=== PATIENT | female | born 1980 | race Caucasian/White ===

== ENCOUNTER 2017-06-30 14:19 | Emergency (ER) | payer OTHER ==
[2017-06-30 15:32] LABS: ABS Basophils 0 10^3/ul (0-0.2); ABS Eosinophils 0.1 10^3/ul (0-0.6); ABS Lymphocytes 2.2 10^3/ul (1.0-4.8); ABS Monocytes 0.5 10^3/ul (0-0.8); ABS Nucleated RBC 0 10^3/ul; Eosinophil % 0.8 % (0-6); Hematocrit 35 % (35-47); Hemoglobin 11.9 g/dl (12.0-16.0); Lymphocyte % 28.8 % (25-47); Mean Corpuscular HGB Conc 34 g/dl (31-36); Mean Corpuscular Hemoglobin 29 pg (27-31); Mean Corpuscular Volume 87 fL (80-97); Mean Platelet Volume 6 um3 (7.4-10.4); Nucleated Red Blood Cells % 0.1; Platelet Count 228 10^3/ul (150-450); Red Blood Count 4.05 10^6/ul (4.0-5.4); Red Cell Distribution Width 14 % (10.5-15); White Blood Count 7.8 10^3/ul (3.5-10.8)
[2017-06-30] MEDS: NS 0.9% 1000 ML* 2,000 ML IV ONE ×2 (15:33→15:34)
[2017-06-30 15:47] LABS: EGFR Non-African American 63.5 (>60)
--- NOTE | 2017-06-30 16:22 | CONSULT ---
Consult Consult: Pt was found to have an MAB several weeks ago and received misoprostol for management. She proceeded to have heavy bleeding and clots followed by progressive decrease in bleeding over the next week. She was seen 5 days ago in the office and had a sono that was consistent with no further retained POC. She had sent the clots she passed to pathology and no POC was noted. At that time she was having very minimal spotting. Earlier this morning she started bleeding again and passed a large clot, about plum sized. Then began bleeding more heavily around noon and was changing a pad multiple times/hour. No cramping. No fever/chills. No dizzyness or light-headedness. 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 Foul odor of retained POC. Sono: some blood clots or possible retained POC in the cervix and possibly the very lower uterine segment. Repeat sono with very minimal clot in cervix. Assessment: Retained POC s/p medical management of MAB, possible endometritis. Plan: Methergine series. Doxycycline 100po bid x10 days. F/u bhcg in office weekly until normal. Reviewed bleeding precautions and when to call.
--- NOTE | 2017-06-30 16:46 | RAD ---
INDICATION: Vaginal bleeding 2 weeks status post D and C COMPARISON: None. TECHNIQUE: Real-time transabdominal and transvaginal ultrasound examination of the female pelvis including grayscale and Doppler color flow imaging. FINDINGS: Uterus: The uterus measures 9.9 x 4.5 x 6.1 cm. There is thickening of the endometrial stripe measuring 15 mm in thickness. There is heterogeneously echogenic material in the endometrium exhibiting marked vascularity. Ovaries: The right and left ovary measure 3.7 x 2.5 x 2.4 cm and 3.2 x 2.7 x 2.7 cm, respectively. Normal arterial and venous waveforms are identified. Appearance is within normal limits for the patient's age. There is no free fluid in the cul-de-sac. IMPRESSION: Sonographic findings are most concerning for retained products of conception 2 weeks status post D&C.
[2017-06-30] MEDS ORDERED: Methylergonovine INJ* 0.2 MG/ML 1ML AMP IM ONE (17:03)
[2017-06-30] MEDS ORDERED: DOXYcycline CAP(*) 100 MG PO ONE ×2 (17:31→18:21)
[2017-06-30] MEDS ORDERED: Silver Nitrate/Potassium Nitr* 1 EA STICK ONE ×2 (17:59)
[2017-06-30] MEDS ORDERED: Methylergonovine TAB* 0.2 MG PO ONE (18:21)
[2017-06-30] MEDS ORDERED: HYDROcodone/ACETAMIN 5-325 MG* 1 TAB PO ONE (18:23)
[2017-06-30 18:59] VITALS: BP 110/61
--- NOTE | 2017-06-30 19:03 | ED ---
Gordy Cortés Tecjoon, scribed for Jovani Yin MD on 06/30/17 at 1511 . GI/ HPI - HPI Summary HPI Summary: This patient is a 37 year old female presenting to [facility] accompanied by with a chief complaint of vaginal bleeding since 2 weeks ago, worsening heavily today this morning. Patient states she had a miscarriage 2 weeks ago and had vaginal bleeding for a few days, which then stopped. This morning, the patient woke up to heavy vaginal bleeding and several large clots. Symptoms are still present. Patient denies any pain. - History of Current Complaint Chief Complaint: EDVaginalBleeding Time Seen by Provider: 06/30/17 14:51 Stated Complaint: BLEEDING/BLOOD CLOTS Hx Obtained From: Patient Onset/Duration: Started Hours Ago, Still Present Timing: Constant Severity: Moderate Current Severity: Moderate Pain Intensity: 0 - /10 Additional Signs & Symptoms: Positive: Miscarriage - Allergy/Home Medications Allergies/Adverse Reactions: Allergies Allergy/AdvReac Type Severity Reaction Status Date / Time No Known Allergies Allergy Verified 06/30/17 14:29 PMH/Surg Hx/FS Hx/Imm Hx Previously Healthy: Yes Cardiovascular History: Denies: Hx Hypertension Opthamlomology History: Denies: Hx Legally Blind EENT History: Denies: Hx Deafness - Surgical History Surgery Procedure, Year, and Place: Vocal Cords; LASIK Infectious Disease History: No Infectious Disease History: Denies: Traveled Outside the [place] in Last 30 Days - Family History Known Family History: Positive: Hypertension, Other - IBS - Social History Lives: With Family Alcohol Use: None Hx Substance Use: No Substance Use Type: Reports: None Hx Tobacco Use: Yes Smoking Status (MU): Former Smoker Have You Smoked in the Last Year: No Review of Systems Negative: Fever Negative: Abdominal Pain Positive: other - vaginal bleeding All Other Systems Reviewed And Are Negative: Yes Physical Exam - Summary Physical Exam Summary: VITAL SIGNS: Reviewed. GENERAL: Patient is a well-developed and nourished (MALE OR FEMALE) who is lying comfortable in the stretcher. Patient is not in any acute respiratory distress. HEAD AND FACE: No signs of trauma. No ecchymosis, hematomas or skull depressions. No sinus tenderness. EYES: PERRLA, EOMI x 2, No injected conjunctiva, no nystagmus. EARS: Hearing grossly intact. Ear canals and tympanic membranes are within normal limits. MOUTH: Oropharynx within normal limits. NECK: Supple, trachea is midline, no adenopathy, no JVD, no carotid bruit, no c- spine tenderness, neck with full ROM. CHEST: Symmetric, no tenderness at palpation LUNGS: Clear to auscultation bilaterally. No wheezing or crackles. CVS: Regular rate and rhythm, S1 and S2 present, no murmurs or gallops appreciated. ABDOMEN: Soft, non-tender. No signs of distention. No rebound no guarding, and no masses palpated. Bowel sounds are normal. PELVIC: Significant bright red blood through the vagina. EXTREMITIES: FROM in all major joints, no edema, no cyanosis or clubbing. NEURO: Alert and oriented x 3. No acute neurological deficits. Speech is normal and follows commands. SKIN: Dry and warm Triage Information Reviewed: Yes Vital Signs On Initial Exam: Initial Vitals Temp Pulse Resp BP Pulse Ox 98.3 F 78 16 118/58 100 06/30/17 14:26 06/30/17 14:26 06/30/17 14:26 06/30/17 14:26 06/30/17 14:26 Vital Signs Reviewed: Yes - [place] Coma Scale Coma Scale Total: 15 Diagnostics - Vital Signs Vital Signs Temp Pulse Resp BP Pulse Ox 06/30/17 14:39 75 16 112/66 100 06/30/17 14:26 98.3 F 78 16 118/58 100 - Laboratory Lab Results: Lab Results 06/30/17 06/30/17 06/30/17 Range/Units 15:20 15:20 15:20 WBC 7.8 (3.5-10.8) 10^3/ul RBC 4.05 (4.0-5.4) 10^6/ul Hgb 11.9 L (12.0-16.0) g/dl Hct 35 (35-47) % MCV 87 (80-97) fL MCH 29 (27-31) pg MCHC 34 (31-36) g/dl RDW 14 (10.5-15) % Plt Count 228 (150-450) 10^3/ul MPV 6 L (7.4-10.4) um3 Neut % (Auto) 64.1 (38-83) % Lymph % (Auto) 28.8 (25-47) % [place] % (Auto) 5.9 (1-9) % Eos % (Auto) 0.8 (0-6) % Baso % (Auto) 0.4 (0-2) % Absolute Neuts (auto) 5.0 (1.5-7.7) 10^3/ul Absolute Lymphs (auto) 2.2 (1.0-4.8) 10^3/ul Absolute Monos (auto) 0.5 (0-0.8) 10^3/ul Absolute Eos (auto) 0.1 (0-0.6) 10^3/ul Absolute Basos (auto) 0 (0-0.2) 10^3/ul Absolute Nucleated RBC 0 10^3/ul Nucleated RBC % 0.1 Sodium 135 (133-145) mmol/L Potassium 3.7 (3.5-5.0) mmol/L Chloride 103 (101-111) mmol/L Carbon Dioxide 27 (22-32) mmol/L Anion Gap 5 (2-11) mmol/L BUN 14 (6-24) mg/dL Creatinine 0.99 H (0.51-0.95) mg/dL Est GFR ( Amer) 81.6 (>60) Est GFR (Non-Af Amer) 63.5 (>60) BUN/Creatinine Ratio 14.1 (8-20) Glucose 94 (70-100) mg/dL Calcium 9.0 (8.6-10.3) mg/dL Total Bilirubin 0.50 (0.2-1.0) mg/dL AST 13 (13-39) U/L ALT 9 (7-52) U/L Alkaline Phosphatase 35 (34-104) U/L Total Protein 7.4 (6.4-8.9) g/dL Albumin 4.2 (3.2-5.2) g/dL Globulin 3.2 (2-4) g/dL Albumin/Globulin Ratio 1.3 (1-3) Beta HCG, Quant 2085.00 mIU/mL Blood Type O Positive Antibody Screen Negative Result Diagrams: 06/30/17 15:20 06/30/17 15:20 Lab Statement: Any lab studies that have been ordered have been reviewed, and results considered in the medical decision making process. GIGU Course/Dx - Course Course Of Treatment: This patient is a 37 year old female presenting to [facility] accompanied by with a chief complaint of vaginal bleeding since 2 weeks ago, worsening heavily today this morning. Patient states she had a miscarriage 2 weeks ago and had vaginal bleeding for a few days, which then stopped. This morning, the patient woke up to heavy vaginal bleeding and several large clots. Symptoms are still present. Patient denies any pain. Dr. Nuñez reports that she has removes most the retained product of conception. Bloodwork Obtained. Urinalysis Obtained. In the ED course the patient was given doxycycline, hydrocodone, methylergonovine as per Dr. Nuñez. She also recommends for the patient to be discharged home with f/u her office. . We discussed patient care with Dr. Nuñez (OBGYN) at 1830 and she states she has removed most of the retained product of conception. She recommends discharging the patient with 4 doses of Methylergonovine and 1 dose of Doxycycline. The patient is advised to follow up with Dr. Nuñez in 3 days. The patient is agreeable with this plan. She was recommended to return to the ED she develops abdominal pain, fever, worsening vaginal bleeding. She understands and agrees. - Diagnoses Differential Diagnoses - Female: Urinary Tract Infection, Other - endometritis, retain products of conception. Provider Diagnoses: Vaginal bleeding, Retained products of conception - Physician Notifications Discussed Care Of Patient With: Suellen Nuñez - CLAIR Time Discussed With Above Provider: 18:30 - We discussed patient care with Dr. Nuñez (OBGYN) at 1830 and she states she has removed most of the retained product of conception. She recommends discharging the patient with 4 doses of Methylergonovine and 1 dose of Doxycycline Discharge - Discharge Plan Condition: Stable Disposition: HOME Referrals: Jessica Mccloud MD [Primary Care Provider] - 3 Days Suellen Nuñez MD [Medical Doctor] - 3 Days Additional Instructions: The patient is advised to follow up with Dr. Nuñez in 3 days. The patient is agreeable with this plan. Return to the ED for persisting or worsening vaginal bleeding. The documentation as recorded by the Gordy wallis Tecjoon accurately reflects the service I personally performed and the decisions made by Humphrey lin Walter, MD.
== END 2017-06-30 18:57 | disposition home or self-care (01) ==
LOC: ED 14:19
DX: N93.9 Abnormal uterine and vaginal bleeding, unspecified (principal); Z87.891 Personal history of nicotine dependence
CPT/HCPCS: 36415; 76830; 80053; 84702; 85025; 86850; 86900; 86901; 88305; 96372; 99283; A9270-GY; J2210